=== PATIENT | male | born 1945 | race Hispanic/Latino ===

== ENCOUNTER 2018-06-26 09:18 | Day surgery (SDC) | payer OTHER ==
--- NOTE | 2018-06-26 09:56 | Anesthesia Consultation ---
Anesthesia Consult and Med Hx Date of service: 06/26/18 - Airway Anesthetic Teeth Evaluation: Poor ROM Head & Neck: Adequate Mental/Hyoid Distance: Adequate Mallampati Class: Class III Intubation Access Assessment: Possibly Difficult - Pulmonary Exam CTA: No (mild scattereed wheezing) - Cardiac Exam Cardiac Exam: RRR - Pre-Operative Health Status ASA Pre-Surgery Classification: ASA3 Proposed Anesthetic Plan: MAC - Pulmonary Hx Smoking: Yes (quit 1982) Hx Respiratory Symptoms: Yes (chronic cough) Home Oxygen Therapy: No - Cardiovascular System Hx Hypertension: Yes Hx Coronary Artery Disease: Yes Hx Heart Attack/AMI: Yes (s/p CABG 2012) Hx Cardia Arrhythmia: No Hx Pacemaker: No Hx Internal Defibrillator: No - Central Nervous System CVA: No - Endocrine Hx Renal Disease: No Hx Liver Disease: No Hx Insulin Dependent Diabetes: No Hx Thyroid Disease: No - Other Systems Hx Obesity: No - Additional Comments Anesthesia Medical History Comments: Took plavix today. Dr. Jameel fair.
--- NOTE | 2018-06-26 09:57 | Anesthesia Day of Surgery ---
Anesthesia Day of Surgery - Day of Surgery Patient Examined: Yes Patient H&P Reviewed: Yes Patient is NPO: Yes Beta Blockers: Yes (last dose metoprolol this morning)
[2018-06-26] MEDS ORDERED: NACL 0.9% 1000 ML 1,000 ML IV SCH (10:00)
[2018-06-26] MEDS ORDERED: PROVENTIL IH PRN (10:00)
[2018-06-26] MEDS ORDERED: WATER FOR IRRIG STERILE IR ONE ×2 (10:22→10:31)
--- NOTE | 2018-06-26 10:59 | Procedure Note ---
Date of procedure: 06/26/18 Pre-op diagnosis: Colon Polyp Screening Post-op diagnosis: other (Colon Polyps (Ascending Colon and Sigmoid)/Mild to Moderate Left colon Diverticular Disease) Procedure: Colonoscopy and Cold Snare Polypectomy and Cold Biopsy Anesthesia: MAC Surgeon: PANCHITO KELSEY Estimated blood loss: minimal Pathology: list Specimen disposition: to lab Condition: stable Disposition: same day (Encourage fiber intake and avoid aspirin and NSAID and Plavix for 4 days. Follow up in 1 to 2 weeks ([phone]).)
[2018-06-26] MEDS ORDERED: DIPRIVAN 10 MG/ML IV ONE (11:06)
--- NOTE | 2018-06-26 11:12 | Operative Report ---
PROCEDURES: Colonoscopy with cold snare polypectomy and biopsy. INDICATION AND PROCEDURE: A 73-year-old white male with a prior history of coronary artery disease, diabetes, hypertension, hyperlipidemia and a family history of cancer. One of his brothers has had cancer. Colonoscopy was done to make sure that there was not any colon polyps present as part of colon polyp screening. Procedure was done after getting informed consent with MAC anesthesia. Initial rectal exam was unremarkable. Instrument was passed through the rectum on to the cecum, which was identified by the ileocecal valve and appendiceal orifice. The scope was retroflexed in the cecum and appeared to be normal. As the scope was withdrawn, there was a 9-10 mm polyp noted in the ascending colon that was removed by cold snare polypectomy and retrieved using the cold biopsy forceps. The remaining part of the proximal colon and transverse colon showed normal mucosa. There was psvb-fs-agibrdic diverticular disease noted in the left colon and in the sigmoid, there was a small polyp that was 7-8 mm in diameter that was removed by cold biopsy. There was minimal bleeding from the biopsy and snare polypectomy site. The rectum appeared normal on the retroverted view. ASSESSMENT: Colon polyps screening. Two polyps removed, 1 by cold snare polypectomy, otherwise cold biopsy. The snare polypectomy polyp was in the proximal colon involving the ascending colon and the other one was in the sigmoid colon. There was minimal bleeding from the biopsy sites. There was mild to moderate diverticular disease involving the left colon. There was no prominent internal hemorrhoid noted on the retroverted view. Again, there was minimal bleeding associated with the procedure. No complications associated with the procedure. The patient will be asked to avoid aspirin and aspirin-related products and Plavix for the next 4 days and follow up in the office in 1-2 weeks' time. Jazmin ZHOU and the GI team was in the room throughout the entirety of the procedure. JOB# [id number]/[id number]
[2018-06-26 11:50] VITALS: BP 132/62
== END 2018-06-26 09:19 | disposition home or self-care (01) ==
LOC: GIO 09:18
DX: Z12.11 Encounter for screening for malignant neoplasm of colon (principal); D12.2 Benign neoplasm of ascending colon; K63.5 Polyp of colon; K57.30 Diverticulosis of large intestine without perforation or abscess without bleeding; I25.10 Atherosclerotic heart disease of native coronary artery without angina pectoris; E11.9 Type 2 diabetes mellitus without complications; E78.5 Hyperlipidemia, unspecified; I25.2 Old myocardial infarction; I11.0 Hypertensive heart disease with heart failure; I50.9 Heart failure, unspecified; Z79.899 Other long term (current) drug therapy; Z98.890 Other specified postprocedural states; Z88.6 Allergy status to analgesic agent; Z95.1 Presence of aortocoronary bypass graft; Z88.8 Allergy status to other drugs, medicaments and biological substances
CPT/HCPCS: 45380; 45385; 82962; 88305; J2704